=== PATIENT | female | born 2000 | race Caucasian/White ===

== ENCOUNTER 2021-01-22 10:03 | Emergency (ER) | payer OTHER ==
[~2021-01-22] VITALS: Ht 162.6 cm; Wt 46.0 kg
--- NOTE | 2021-01-22 10:38 | NUR ---
SURVEY CAD TECHNICIAN: PT AMBULATORY TO ROOM WITH STEADY GAIT.
--- NOTE | 2021-01-22 10:47 | NUR ---
PT AMBULATORY TO ROOM 23 W/ C/O L CAT BITE STARTED LAST NIGHT W/ SWELLING ON THE BACK OF HAND. THROUGH PUNCTURE HOLE PT NOTED TO HAVE PUS COMING OUT. PT UTD ON VACCINES. PT RESTING ON GURNEY. NADN. MONITORS APPLIED. VSS. COLEMAN TOLEDO AT BEDSIDE FOR EVAL.
[2021-01-22] MEDS ORDERED: ETHI1TAB7 PO (10:52)
[2021-01-22] MEDS ORDERED: CLINDAMYCIN PMX 600MG/50ML 50 ML IVPB ONE (11:00)
[2021-01-22] MEDS ORDERED: ONDANSETRON 2MG/ML, 2ML IVPush ONE (11:00)
[2021-01-22] MEDS ORDERED: MORPHINE SULFATE 4 MG/ML, 1ML IV PRN (11:00)
--- NOTE | 2021-01-22 11:09 | NUR ---
PT RESTING ON GURNEY. NADN. AGRAWAL.
[2021-01-22] MEDS ORDERED: ONDANSETRON 2MG/ML, 2ML ONE (11:11)
[2021-01-22] MEDS ORDERED: MORPHINE SULFATE 4 MG/ML, 1ML ONE (11:11)
[2021-01-22] MEDS ORDERED: CLINDAMYCIN PMX 600MG/50ML 50 ML ONE ×2 (11:11→17:10)
--- NOTE | 2021-01-22 11:54 | NUR ---
PT RESTING ON GURNEY. NADN. AGRAWAL.
[2021-01-22 11:57] LABS: BASOPHILS % (AUTO) 0 % (0-1); EOSINOPHILS % (AUTO) 3 % (1-7); LYMPHOCYTES % (AUTO) 22 % (22-44); MEAN CORPUSCULAR HEMOGLOBIN 30.6 pg (27.0-34.8); MEAN CORPUSCULAR HGB CONC 34.5 g/dL (32.4-35.8); MEAN PLATELET VOLUME 8.2 fL (7.4-10.4); MONOCYTES % (AUTO) 4 % (2-9); NEUTROPHILS % (AUTO) 71 % (42-75); PLATELET COUNT 172 x10^3/uL (130-400); RED BLOOD COUNT 4.61 x10^6/uL (3.82-5.3); RED CELL DISTRIBUTION WIDTH 12.8 % (9.6-15.2)
[2021-01-22 12:06] LABS: ALBUMIN 3.9 g/dL (3.4-5.0); ANION GAP 4 mmol/L (5-15); CALCIUM 9.2 mg/dL (8.5-10.1); CHLORIDE 107 mmol/L (98-107)
[2021-01-22 12:08] LABS: MD NO
[2021-01-22 12:12] LABS: ALANINE AMINOTRANSFERASE 24 U/L (12-78); ALKALINE PHOSPHATASE 60 U/L (45-117); BILIRUBIN,TOTAL 0.8 mg/dL (0.2-1.0); CREATININE 0.86 mg/dL (0.55-1.02); TOTAL PROTEIN 7.5 g/dL (6.4-8.2)
--- NOTE | 2021-01-22 12:36 | NUR ---
PT RESTING ON SORIN. NADN. STATONS. AWARE OF POC FOR CT AND IS AGREEABLE.
[2021-01-22] MEDS ORDERED: OMNIPAQUE 350 MG/ML, 100ML BOTTLE ONE (13:21)
--- NOTE | 2021-01-22 13:28 | NUR ---
PT TO AND FROM CT IN STABLE CONDITION. PT RESTING ON GURNEY. NADN. AGRAWAL.
--- NOTE | 2021-01-22 13:33 | NUR ---
PT CHART REVIEWED AND PLACED FOR RECHECK.
--- NOTE | 2021-01-22 14:34 | NUR ---
PT RESTING ON GURNEY. NADN. AGRAWAL.
--- NOTE | 2021-01-22 15:53 | NUR ---
BREAK RN: PT VERIFID WANTS TO LEAVE AFTER 2ND DOSE OF CLINDAMYACIN. PT WITH OUTLINE OF REDNESS ON LEFT HAND. FAMILY AT BEDSIDE.
[2021-01-22] MEDS ORDERED: CLINDAMYCIN PMX 600MG/50ML 50 ML IV SCH (17:00)
[2021-01-22 17:27] VITALS: BP 96/47
--- NOTE | 2021-01-22 17:27 | NUR ---
PT RESTING ON GURNEY. NADN. AGRAWAL.
--- NOTE | 2021-01-22 18:04 | NUR ---
PT HAD NO REACTION TO FIRST IV ABX INFUSION. WILL DC WHEN SECOND IV ABX DOSE COMPLETE.
== END 2021-01-22 18:06 | disposition home or self-care (01) ==
LOC: ED 11:14
DX: S60.572A Other superficial bite of hand of left hand, initial encounter (principal); L03.113 Cellulitis of right upper limb; W55.01XA Bitten by cat, initial encounter; Y93.89 Activity, other specified; Y92.89 Other specified places as the place of occurrence of the external cause; Y99.8 Other external cause status
CPT/HCPCS: 29125; 36415; 73201; 80053; 85025; 96365; 96366; 96375; 99285; J2270; J2405; Q9967

== ENCOUNTER 2021-01-23 09:07 | Emergency (ER) | payer OTHER ==
[~2021-01-23] VITALS: Ht 162.6 cm; Wt 47.2 kg
[~2021-01-23 09:07] MED LIST: ETHI1TAB7 PO
[2021-01-23 09:10] VITALS: BP 128/107
--- NOTE | 2021-01-23 09:20 | NUR ---
PT AMBULATORY TO ROOM 8 W/ C/O L CAT BITE TO DORSAL HAND. PT HERE YESTERDAY FOR IV ABX. RECEIVED 2 DOSES OF IV ABX CLEOCIN AND WAS PRESCRIBED PO ABX AUGMENTIN TOOK IT LAST NIGHT. WAS TOLD BY ERP DR. BAEZ. COLEMAN AUGUST AT BEDSIDE FOR EVAL.
--- NOTE | 2021-01-23 09:24 | NUR ---
PT HAND NOTED TO HAVE DECREASED SWELLING AND REDNESS TO HAND IN COMPARISON TO YESTERDAY.
--- NOTE | 2021-01-23 10:28 | NUR ---
YELLOW SLIP SENT TO PHARMACY FOR MEDS PER DEC.
[2021-01-23] MEDS ORDERED: RABIES VACCINE /PF 2.5 UNITS IM-VACC ONE (10:30)
[2021-01-23] MEDS ORDERED: RABIES IMMUNE GLOBULIN/PF 300 UNITS/ML,1ML IM ONE (10:30)
[2021-01-23] MEDS ORDERED: HYDROcodone/APAP 5/325 TABLET ONE (11:14)
--- NOTE | 2021-01-23 11:17 | NUR ---
RABIES VACCINE AND IMMUNOGLOBULIN GIVEN. PT KASSY WELL. PT C/O INCREASED PAIN TO HAND. COLEMAN AUGUST NOTIFEID. AWAITING NEW ORDERS FOR PAIN MED.
[2021-01-23] MEDS ORDERED: HYDROcodone/APAP 5/325 TABLET PO ONE (11:30)
== END 2021-01-23 11:27 | disposition home or self-care (01) ==
LOC: ED 11:15
DX: S60.572D Other superficial bite of hand of left hand, subsequent encounter (principal); L03.114 Cellulitis of left upper limb; W55.01XD Bitten by cat, subsequent encounter
CPT/HCPCS: 90375; 90471; 90675; 96372

== ENCOUNTER 2021-01-26 08:03 | Emergency (ER) | payer OTHER ==
[~2021-01-26] VITALS: Ht 162.6 cm; Wt 45.4 kg
[2021-01-26 08:06] VITALS: BP 114/81
[2021-01-26] MEDS ORDERED: RABIES VACCINE /PF 2.5 UNITS IM-VACC ONE (08:30)
== END 2021-01-26 08:51 | disposition home or self-care (01) ==
LOC: ED 08:22
DX: S60.572D Other superficial bite of hand of left hand, subsequent encounter (principal); W55.01XD Bitten by cat, subsequent encounter
CPT/HCPCS: 90471; 90675; 99281

== ENCOUNTER 2021-01-31 10:10 | Emergency (ER) | payer OTHER ==
[~2021-01-31] VITALS: Ht 162.6 cm; Wt 45.1 kg
[2021-01-31 10:13] VITALS: BP 123/74
[2021-01-31] MEDS ORDERED: RABIES VACCINE /PF 2.5 UNITS IM-VACC ONE (10:30)
--- NOTE | 2021-01-31 10:52 | NUR ---
Pt was bit by jamel cat. Finished abx. Has 1 more visit for final rabbies vaccine.
== END 2021-01-31 11:20 | disposition home or self-care (01) ==
LOC: ED 11:18
DX: S60.572D Other superficial bite of hand of left hand, subsequent encounter (principal); W55.01XD Bitten by cat, subsequent encounter
CPT/HCPCS: 90471; 90675; 99283

== ENCOUNTER 2021-02-07 09:30 | Emergency (ER) | payer OTHER ==
[~2021-02-07] VITALS: Ht 162.6 cm; Wt 45.8 kg
--- NOTE | 2021-02-07 10:19 | NUR ---
AWAITING MED FROM PHARMACY.
[2021-02-07 10:31] VITALS: BP 114/68
[2021-02-07] MEDS ORDERED: RABIES VACCINE /PF 2.5 UNITS IM-VACC ONE (13:00)
== END 2021-02-07 10:39 | disposition home or self-care (01) ==
LOC: ED 10:03
DX: S61.452D Open bite of left hand, subsequent encounter (principal); Z23 Encounter for immunization; W55.01XD Bitten by cat, subsequent encounter
CPT/HCPCS: 90471; 90675; 99281